=== PATIENT | female | born 1965 | race Hispanic/Latino ===

== ENCOUNTER → 2021-08-08 | Outpatient (CLI) | payer MEDICARE, OTHER ==
[~2021-08-08] MED LIST: CARVEDILOL12.5 MG PO; HYDRALAZINE HCL50 MG PO; HYOSCYAMINE0.375 MG PO; LOSARTAN POTAS100 MG PO; NIFEDIPINE ER30 M1 PO; ONDANSETRON ODT8 MG PO; PROMETHAZINE HC25 M1 PO; PROTONIX20 MG PO
== END ==
LOC: OR 09:55 → RAD 09:55 → EDSTATUS 11:30
PROVIDERS: ATTEND Internal Medicine Gastroenterology
DX: Z01.810 Encounter for preprocedural cardiovascular examination (principal); U07.1 COVID-19; K21.9 Gastro-esophageal reflux disease without esophagitis; Z53.8 Procedure and treatment not carried out for other reasons
CPT/HCPCS: 93005; U0002